=== PATIENT | female | born 1990 | race Two or more races ===

== ENCOUNTER 2022-04-07 14:25 | Emergency (ER) | payer MEDICAID, OTHER ==
[~2022-04-07] VITALS: Ht 157.5 cm; Wt 92.5 kg
[2022-04-07 16:30] LABS: Urine Bacteria FEW /hpf (None Seen); Urine Blood Negative /uL (Negative); Urine Specific Gravity 1.015 (1.001-1.035); Urine WBC 4 /hpf (0 - 5)
[2022-04-07] MEDS ORDERED: NITR-87 PO (16:40)
[2022-04-07 17:38] VITALS: BP 100/52
== END 2022-04-07 17:38 | disposition home or self-care (01) ==
LOC: ER 14:25
DX: O23.43 Unspecified infection of urinary tract in pregnancy, third trimester (principal); N39.0 Urinary tract infection, site not specified; Z3A.28 28 weeks gestation of pregnancy; Z20.822 Contact with and (suspected) exposure to COVID-19
CPT/HCPCS: 36415; 81001; 93005